=== PATIENT | male | born 1990 | race Caucasian/White ===

== ENCOUNTER 2019-05-21 01:33 | Emergency (ER) | payer SELFPAY ==
[2019-05-21 02:16] LABS: Absolute Lymphocytes (CBC) 3.3 K/uL (0.7-4.9); Basophils % 0.7 % (0-1.3); Eosinophils % 1.3 % (0-4.4); Hematocrit 43.3 % (39.6-49.0); Lymphocytes % 26.3 % (15.3-44.8); MPV 7.8 fL (7.6-11.3); Monocytes % 10.4 % (3.3-12.3); RBC Red Blood Cell Count 4.88 M/uL (4.33-5.43)
[2019-05-21 02:20] LABS: Protime INR 0.94
[2019-05-21 02:52] LABS: ALT/SGPT 131 U/L (12-78); AST/SGOT 30 U/L (15-37); Albumin 4.2 g/dL (3.4-5.0); Alkaline Phosphatase 71 U/L (45-117); BUN Blood Urea Nitrogen 18 mg/dL (7-18); Bicarbonate 29 mmol/L (21-32); Bilirubin Direct 0.1 mg/dL (0-0.2); Bilirubin Total 0.4 mg/dL (0.2-1.0); Glucose Level 135 mg/dL (74-106); Protein, Total 7.8 g/dL (6.4-8.2)
[2019-05-21 03:02] LABS: Potassium 3.5 mmol/L (3.5-5.1); Sodium Level 144 mmol/L (136-145)
--- NOTE | 2019-05-21 04:52 | ER ---
Nurse's Notes [facility] Name: Mana Garces Age: 28 yrs Sex: Male : 1990 Arrival Date: 05/21/2019 Time: 01:43 Bed 15 Private MD: Diagnosis: Altered mental status, unspecified-overdose, not suicidal;Abuse of non-psychoactive substances Presentation: 05/21 02:00 Presenting complaint: EMS states: "We were called for a patient that had reported to jd3 family that he was going to commit suicide with overdose. it was reported to us that he recently was released out skilled nursing after 90 days. upon arrival the patient was found lying on the floor with snoring respirations. we started bagging and gave 2 of Narcan nasally. this had little affect so we started an 18 G IV and gave 2 more of Narcan IV and he woke up. family reported the patient took Zyprexa. When he woke up, the patient reported doing a line of heroin, Xanax, and a bottle of NyQuil just to help him sleep. he currently denies wanting to hurt himself. he also wants to make sure his family doesn't know that he relapsed with drugs.". Transition of care: patient was not received from another setting of care. Onset of symptoms was May 21, 2019. Risk Assessment: Do you want to hurt yourself or someone else? Patient reports no desire to harm self or others. Initial Sepsis Screen: Does the patient meet any 2 criteria? No. Patient's initial sepsis screen is negative. Does the patient have a suspected source of infection? No. Patient's initial sepsis screen is negative. Care prior to arrival: Assisted ventilation, nasal canula. Medication(s) given: Narcan 2 X 2 IV initiated. 18 GA, in the right antecubital area, Glucose check: 205 Oxygen administered. via nasal cannula, via AMBU bag. 02:00 Method Of Arrival: EMS: [facility] jd3 02:00 Acuity: WILD 2 jd3 Historical: - Allergies: 02:12 Ceclor; jd3 - Home Meds: 02:12 Prozac Oral [Active]; Remeron Oral [Active]; Prozac Oral [Active]; jd3 - PMHx: 02:12 ptsd; Anxiety; Depression; jd3 - PSHx: 02:12 Tonsillectomy; jd3 - Immunization history:: Adult Immunizations unknown. - Social history:: Smoking status: Patient uses tobacco products, smokes one pack cigarettes per day. - Family history:: not pertinent. - Ebola Screening: : Patient negative for fever greater than or equal to 101.5 degrees Fahrenheit, and additional compatible Ebola Virus Disease symptoms. Screenin:19 Abuse screen: Denies threats or abuse. Nutritional screening: No deficits noted. jd3 Tuberculosis screening: No symptoms or risk factors identified. Fall Risk IV access (20 points). Ambulatory Aid- None/Bed Rest/Nurse Assist (0 pts). Gait- Normal/Bed Rest/Wheelchair (0 pts) Mental Status- Overestimates/Forgets Limitations (15 pts.). Total [place] Fall Scale indicates Low Risk Score (25-44 pts). Fall prevention measures have been instituted. Side Rails Up X 2 Placed close to Nursing Station Frequent Obs/Assesments occuring. Assessment: 02:15 General: Appears in no apparent distress. comfortable, Behavior is calm, cooperative, jd3 appropriate for age, drowsy. Pain: Complains of pain in head Pain currently is 1 out of 10 on a pain scale. Quality of pain is described as aching. Neuro: Level of Consciousness is awake, obeys commands, drowsy. Oriented to person, place, time, situation. Cardiovascular: Heart tones S1 S2 present Capillary refill < 3 seconds Patient's skin is warm and dry. Rhythm is sinus tachycardia. Respiratory: Airway is patent Respiratory effort is even, unlabored, Respiratory pattern is regular, symmetrical, Breath sounds are clear bilaterally. Denies cough, shortness of breath. GI: Abdomen is round non-distended, Bowel sounds present X 4 quads. Abd is soft and non tender X 4 quads. Reports nausea, vomiting, Patient currently denies constipation, diarrhea. : No signs and/or symptoms were reported regarding the genitourinary system. EENT: No signs and/or symptoms were reported regarding the EENT system. Derm: Skin is intact, Skin is dry, Skin is normal, Skin temperature is warm. Musculoskeletal: Circulation, motion, and sensation intact. Range of motion: intact in all extremities. 02:48 Reassessment: spoke to Poison Control case # [id number] recommendations are monitor 4-6 bb hours, chest Xray at 4 hours to assess for pulmonary edema, toxic work-up with tylenol, aspirin levels repeat in 4 hours, monitor for anticholinergic effects of Nyquil, check CK levels to r/o rhabdomyolysis if downtime is unknown, if Narcan is administered again s/p EMS administration consider admission. 02:50 Reassessment: No changes from previously documented assessment. Patient and/or family jd3 updated on plan of care and expected duration. Pain level reassessed. oriented X 4, pt is drowsy. talking with family at bedside. even and unlabored respirations. 03:58 Reassessment: Patient appears in no apparent distress at this time. No changes from jd3 previously documented assessment. Patient and/or family updated on plan of care and expected duration. Pain level reassessed. Patient denies pain at this time. 05:04 Reassessment: Patient appears in no apparent distress at this time. Patient and/or jd3 family updated on plan of care and expected duration. Pain level reassessed. pt resting in bed with even and unlabored respirations, call ennis in reach. bed locked and in a low position. pt drowsy upon waking up. no distress noted at this time. 06:22 Reassessment: Patient appears in no apparent distress at this time. No changes from jd3 previously documented assessment. Patient and/or family updated on plan of care and expected duration. Pain level reassessed. awaiting repeat lab results. pt drowsy upon waking up. pt not marinating oxygen without nasal canula, provider notified. even and unlabored respirations. 08:05 Reassessment: Patient appears in no apparent distress at this time. pt unable to sit or sg stand on his own at this time, pt family to pick pt up, will continue to monitor. 08:32 Reassessment: pt awakens to tactile stimuli at this time, pt very drowsy, unable to sg situp without falling asleep. sr x2 remain up, bed is in low and locked position, pt remains on monitors at this time. pt to DC to home as ordered when pt is in stable condition. 08:35 Reassessment: pt NC has been removed by pt, o2 saturation of 77 percent, pt placed back sg to NC at 3 lpm, o2 saturation increased to 99 % NC at 3 lpm. 08:44 Reassessment: pt family member Quentin at bedside at this time, reports the pt lives with sg his sister. at this time pt is not in a condition to be discharged due to the need for NC o2 to help maintain saturation greater than 90 %, pt family to come back later for re evaluation prior to pt leaving. Vital Signs: 02:05 BP 110 / 89; Pulse 123; Resp 19 S; Temp 98.7(O); Pulse Ox 89% on R/A; Weight 74.84 kg jd3 (R); Height 5 ft. 10 in. (177.80 cm) (R); Pain 1/10; 02:12 Pulse Ox 96% on 2 lpm NC; jd3 02:51 BP 116 / 90; Pulse 118; Resp 20 S; Pulse Ox 93% on R/A; jd3 03:59 BP 106 / 75; Pulse 116; Resp 15 S; Pulse Ox 96% on 2 lpm NC; Pain 0/10; jd3 05:03 BP 111 / 95; Pulse 110; Resp 14 S; Pulse Ox 99% on 2 lpm NC; jd3 06:22 BP 143 / 95; Pulse 115; Resp 12 S; Pulse Ox 89% on R/A; jd3 06:22 Pulse Ox 99% on 2 lpm NC; jd3 07:00 BP 112 / 87; Pulse 109; Resp 18; Pulse Ox 89% on R/A; sg 07:01 Pulse Ox 99% on 2 lpm NC; sg 02:05 Body Mass Index 23.67 (74.84 kg, 177.80 cm) jd3 07:00 pt placed back to 2 lpm NC, o2 saturation increased to 99 % ED Course: 01:43 Patient arrived in ED. ds1 01:44 Fabian Brownlee MD is Attending Physician. edson 02:00 Harrison Knox RN is Primary Nurse. jd3 02:10 Triage completed. jd3 02:14 Arm band placed on. EKG completed in triage. Results shown to . jd3 02:20 Patient has correct armband on for positive identification. Placed in gown. Bed in low jd3 position. Call light in reach. Side rails up X2. 02:20 Maintain EMS IV. Dressing intact. Good blood return noted. Site clean \\T\\ dry. Gauge \\T\\ shellie 3 site: 18 G right AC. flushes well. 03:41 X-ray completed. Portable x-ray completed in exam room. Patient tolerated procedure kw well. 03:42 Chest Single View XRAY In Process Unspecified. EDMS 04:23 Quentin Alexander [phone] call when being discharged. ar5 Administered Medications: 02:32 Drug: NS 0.9% 1000 ml Route: IV; Rate: 1 bolus; Site: right antecubital; jd3 02:32 Drug: Zofran 4 mg Route: IVP; Site: right antecubital; jd3 03:30 Follow up: Response: No adverse reaction jd3 Outcome: 04:51 Discharge ordered by MD. sandhu 11:19 Patient left the ED. aa5 Signatures: Dispatcher [employer] EDMS Clyde Saldana RN RN sg Anderson, Corey, MD MD cha Sanford, Demi ds1 Kiera Cano RN RN bb Calderon, Audri, RN RN aa5 Sonia Goodman Jonathon, RN RN Kenia Laureano ar5
--- NOTE | 2019-05-21 04:52 | EDPHYS ---
Physician Documentation [facility] Name: Mana Garces Age: 28 yrs Sex: Male : 1990 Arrival Date: 05/21/2019 Time: 01:43 Bed 15 Private MD: ED Physician Fabian Brownlee HPI: 05/21 01:53 This 28 yrs old Male presents to ER via Unassigned with complaints of drug edson od,ems. 01:53 od, cant sleep. The patient presents with confusion, trouble concentrating. Onset: The edson symptoms/episode began/occurred just prior to arrival. Possible causes: drug use. Associated signs and symptoms: The patient has no apparent associated signs or symptoms. Current symptoms: In the emergency department the patient's symptoms have improved, moderately. Patient's baseline: Neuro: alert but confused. Severity of symptoms: At their worst the symptoms were moderate in the emergency department the symptoms have improved moderately. It is unknown whether or not the patient has had similar symptoms in the past. Historical: - Allergies: 02:12 Ceclor; jd3 - Home Meds: 02:12 Prozac Oral [Active]; Remeron Oral [Active]; Prozac Oral [Active]; jd3 - PMHx: 02:12 ptsd; Anxiety; Depression; jd3 - PSHx: 02:12 Tonsillectomy; jd3 - Immunization history:: Adult Immunizations unknown. - Social history:: Smoking status: Patient uses tobacco products, smokes one pack cigarettes per day. - Family history:: not pertinent. - Ebola Screening: : Patient negative for fever greater than or equal to 101.5 degrees Fahrenheit, and additional compatible Ebola Virus Disease symptoms. ROS: 01:53 Constitutional: Negative for fever, chills, and weight loss, Eyes: Negative for injury, edson pain, redness, and discharge, ENT: Negative for injury, pain, and discharge, Neck: Negative for injury, pain, and swelling, Cardiovascular: Negative for chest pain, palpitations, and edema, Respiratory: Negative for shortness of breath, cough, wheezing, and pleuritic chest pain, Back: Negative for injury and pain, : Negative for injury, bleeding, discharge, and swelling, MS/Extremity: Negative for injury and deformity, Skin: Negative for injury, rash, and discoloration, Psych: Negative for depression, anxiety, suicide ideation, homicidal ideation, and hallucinations, Allergy/Immunology: Negative for hives, rash, and allergies, Endocrine: Negative for neck swelling, polydipsia, polyuria, polyphagia, and marked weight changes, Hematologic/Lymphatic: Negative for swollen nodes, abnormal bleeding, and unusual bruising. 01:53 Abdomen/GI: Positive for nausea, vomiting. 01:53 Neuro: Positive for altered mental status, weakness. :53 Psych: Positive for insomnia. Exam: 01:53 Constitutional: This is a well developed, well nourished patient who is awake, alert, edson and in no acute distress. Head/Face: Normocephalic, atraumatic. Eyes: Pupils equal round and reactive to light, extra-ocular motions intact. Lids and lashes normal. Conjunctiva and sclera are non-icteric and not injected. Cornea within normal limits. Periorbital areas with no swelling, redness, or edema. ENT: Nares patent. No nasal discharge, no septal abnormalities noted. Tympanic membranes are normal and external auditory canals are clear. Oropharynx with no redness, swelling, or masses, exudates, or evidence of obstruction, uvula midline. Mucous membranes moist. Neck: Trachea midline, no thyromegaly or masses palpated, and no cervical lymphadenopathy. Supple, full range of motion without nuchal rigidity, or vertebral point tenderness. No Meningismus. Chest/axilla: Normal chest wall appearance and motion. Nontender with no deformity. No lesions are appreciated. Cardiovascular: Regular rate and rhythm with a normal S1 and S2. No gallops, murmurs, or rubs. Normal PMI, no JVD. No pulse deficits. Respiratory: Lungs have equal breath sounds bilaterally, clear to auscultation and percussion. No rales, rhonchi or wheezes noted. No increased work of breathing, no retractions or nasal flaring. Abdomen/GI: Soft, non-tender, with normal bowel sounds. No distension or tympany. No guarding or rebound. No evidence of tenderness throughout. Back: No spinal tenderness. No costovertebral tenderness. Full range of motion. Male : Normal genitalia with no discharge or lesions. Skin: Warm, dry with normal turgor. Normal color with no rashes, no lesions, and no evidence of cellulitis. MS/ Extremity: Pulses equal, no cyanosis. Neurovascular intact. Full, normal range of motion. Neuro: Awake and alert, GCS 15, oriented to person, place, time, and situation. Cranial nerves II-XII grossly intact. Motor strength 5/5 in all extremities. Sensory grossly intact. Cerebellar exam normal. Normal gait. Psych: Awake, alert, with orientation to person, place and time. Behavior, mood, and affect are within normal limits. Vital Signs: 02:05 BP 110 / 89; Pulse 123; Resp 19 S; Temp 98.7(O); Pulse Ox 89% on R/A; Weight 74.84 kg jd3 (R); Height 5 ft. 10 in. (177.80 cm) (R); Pain 1/10; 02:12 Pulse Ox 96% on 2 lpm NC; jd3 02:51 BP 116 / 90; Pulse 118; Resp 20 S; Pulse Ox 93% on R/A; jd3 03:59 BP 106 / 75; Pulse 116; Resp 15 S; Pulse Ox 96% on 2 lpm NC; Pain 0/10; jd3 05:03 BP 111 / 95; Pulse 110; Resp 14 S; Pulse Ox 99% on 2 lpm NC; jd3 06:22 BP 143 / 95; Pulse 115; Resp 12 S; Pulse Ox 89% on R/A; jd3 06:22 Pulse Ox 99% on 2 lpm NC; jd3 07:00 BP 112 / 87; Pulse 109; Resp 18; Pulse Ox 89% on R/A; sg 07:01 Pulse Ox 99% on 2 lpm NC; sg 02:05 Body Mass Index 23.67 (74.84 kg, 177.80 cm) jd3 07:00 pt placed back to 2 lpm NC, o2 saturation increased to 99 % MDM: 01:44 Patient medically screened. [facility] 01:55 Data reviewed: vital signs, nurses notes, lab test result(s), EKG. 05/21 01:52 Order name: Acetaminophen; Complete Time: 03:22 edson 05/21 01:52 Order name: Basic Metabolic Panel; Complete Time: 03:22 edson 05/21 01:52 Order name: CBC with Diff; Complete Time: 03:22 [facility] 05/21 01:52 Order name: ETOH Level; Complete Time: 03:22 [facility] 05/21 01:52 Order name: Hepatic Function; Complete Time: 03:22 [facility] 05/21 01:52 Order name: PT-INR; Complete Time: 03:22 [facility] 05/21 01:52 Order name: Ptt, Activated; Complete Time: 03:22 [facility] 05/21 01:52 Order name: Salicylate; Complete Time: 03:22 [facility] 05/21 01:52 Order name: EKG; Complete Time: 01:55 [facility] 05/21 03:25 Order name: Chest Single View XRAY; Complete Time: 08:31 [facility] 05/21 05:34 Order name: Acetaminophen; Complete Time: 06:51 mw2 05/21 01:52 Order name: EKG - Nurse/Tech; Complete Time: 02:07 [facility] 05/21 01:52 Order name: IV Saline Lock; Complete Time: 02:07 [facility] 05/21 01:52 Order name: Labs collected and sent; Complete Time: 02:06 [facility] 05/21 10:33 Order name: Diet Regular; Complete Time: 10:34 aa5 Administered Medications: 02:32 Drug: NS 0.9% 1000 ml Route: IV; Rate: 1 bolus; Site: right antecubital; jd3 02:32 Drug: Zofran 4 mg Route: IVP; Site: right antecubital; jd3 03:30 Follow up: Response: No adverse reaction jd3 Disposition: 05/21/19 04:51 Discharged to Home. Impression: Altered mental status, unspecified - overdose, not suicidal, Abuse of non-psychoactive substances. - Condition is Stable. - Discharge Instructions: Confusion, Substance Use Disorder. - Medication Reconciliation Form, Thank You Letter, Antibiotic Education, Prescription Opioid Use form. - Follow up: Private Physician; When: 2 - 3 days; Reason: Recheck today's complaints, Continuance of care, Re-evaluation by your physician. - Problem is new. - Symptoms have improved. Signatures: Dispatcher [employer] EDMS Fabian Brownlee MD MD cha Calderon, Audri, RN RN aa5 Puma Morales, ENGINE ASSEMBLY SUPERVISOR ENGINE ASSEMBLY SUPERVISOR pm1 Harrison Knox RN RN jd3 Corrections: (The following items were deleted from the chart) 11:19 04:51 05/21/2019 04:51 Discharged to Home. Impression: Altered mental status, aa5 unspecified - overdose, not suicidal; Abuse of non-psychoactive substances. Condition is Stable. Discharge Instructions: Confusion, Substance Use Disorder. Forms are Medication Reconciliation Form, Thank You Letter, Antibiotic Education, Prescription Opioid Use. Follow up: Private Physician; When: 2 - 3 days; Reason: Recheck today's complaints, Continuance of care, Re-evaluation by your physician. Problem is new. Symptoms have improved. edson
--- NOTE | 2019-05-21 07:19 | EKG ---
Test Date: 2019-05-21 Test Time: 01:35:59 Logging Rafter Laborer: AER MEASUREMENT RESULTS: Intervals: Rate: 116 IL: 154 QRSD: 114 QT: 340 QTc: 472 [place]: P: 58 IL: 154 QRS: 2 T: 68 INTERPRETIVE STATEMENTS: Sinus tachycardia Incomplete right bundle branch block Borderline ECG No previous ECG available for comparison Electronically Signed On 05-21-19 07:19:04 CDT by Wilton Eason
--- NOTE | 2019-05-21 07:58 | RAD REPORT ---
EXAM DESCRIPTION: Nas Single View05/21/2019 3:42 am CLINICAL HISTORY: Cough COMPARISON: none FINDINGS: The lungs appear clear of acute infiltrate. The heart is normal size Poor degree of inspiration
[2019-05-21 11:41] VITALS: TEMP 98.7
[2019-05-21 11:50] VITALS: BP 112/87
[2019-05-21 11:51] VITALS: O2SAT 99
== END 2019-05-21 11:19 | disposition home or self-care (01) ==
LOC: ER 01:33
DX: T65.91XA Toxic effect of unspecified substance, accidental (unintentional), initial encounter (principal); F55.8 Abuse of other non-psychoactive substances; F17.210 Nicotine dependence, cigarettes, uncomplicated; F41.9 Anxiety disorder, unspecified; F32.9 Major depressive disorder, single episode, unspecified; F43.10 Post-traumatic stress disorder, unspecified; Z88.1 Allergy status to other antibiotic agents
CPT/HCPCS: 36415; 71045; 80048; 80076; 80320; 80329; 85025; 85610; 85730; 93005; 96374; 99284

== ENCOUNTER 2020-04-10 12:50 | Emergency (ER) | payer SELFPAY ==
--- NOTE | 2020-04-10 15:16 | ER ---
Nurse's Notes [facility] Name: Mana Garces Age: 29 yrs Sex: Male : 1990 Arrival Date: 04/10/2020 Time: 12:53 Bed 27 Private MD: Diagnosis: Presentation: 04/10 13:10 Chief complaint: Patient states: skin sores that began 3 weeks ago. Coronavirus screen: Proceed with normal triage. Patient denies a cough. Patient denies shortness of breath or difficulty breathing. Patient denies measured and/or subjective temperature greater than 100.4F prior to today's visit. Patient denies travel on a cruise ship or to a country the [facility] currently lists as an affected area. Patient denies contact with known and/or suspected case of COVID-19. Ebola Screen: Patient denies exposure to infectious person. Patient denies travel to an Ebola-affected area in the 21 days before illness onset. Initial Sepsis Screen: Does the patient meet any 2 criteria? No. Patient's initial sepsis screen is negative. Does the patient have a suspected source of infection? No. Patient's initial sepsis screen is negative. Risk Assessment: Do you want to hurt yourself or someone else? Patient reports no desire to harm self or others. Onset of symptoms is unknown. 13:10 Method Of Arrival: Ambulatory 13:10 Acuity: WILD 4 Historical: - Allergies: 13:11 Ceclor; - PMHx: 13:11 Anxiety; Depression; PTSD; ss - PSHx: 13:11 Tonsillectomy; - Immunization history:: Adult Immunizations unknown. - Social history:: Smoking status: Patient denies any tobacco usage or history of. Assessment: 14:23 Reassessment: called to exam room. No answer. Pt was seen by bystander walking around ER parking lot. 15:08 Reassessment: Called pt's name out in ER lobby without response. aa5 15:15 Reassessment: telephone sales representative reports pt eloped due to waiting time. . aa5 Vital Signs: 13:10 BP 123 / 82; Pulse 112; Resp 16; Temp 99.0(TE); Pulse Ox 100% on R/A; Weight 61.23 kg; Height 5 ft. 10 in. (177.80 cm); Pain 0/10; 13:10 Body Mass Index 19.37 (61.23 kg, 177.80 cm) ED Course: 12:53 Patient arrived in ED. mr 13:11 Triage completed. ss 13:11 Arm band placed on right wrist. ss 15:08 Lawanda Aldana, RN is Primary Nurse. aa5 15:09 [facility]C [facility]. snw 15:09 Tello Mack MD is Attending Physician. snw 15:15 Tello Mack MD is Attending Physician. aa5 Administered Medications: No medications were administered Outcome: 15:15 Patient left the ED. aa5 Signatures: Eliane Vega FNP-C FNP-Forrest Maryan Gonzalez mr Lawanda Aldana, RN RN aa5 Paige Magallon RN RN
[2020-04-10 15:19] VITALS: BP 123/82; TEMP 99; O2SAT 100
== END 2020-04-10 15:15 | disposition left against medical advice (07) ==
LOC: ER 12:50
DX: Z53.21 Procedure and treatment not carried out due to patient leaving prior to being seen by health care provider (principal)
CPT/HCPCS: 99281

== ENCOUNTER 2020-04-10 15:36 | Emergency (ER) | payer SELFPAY ==
--- NOTE | 2020-04-10 18:25 | ER ---
Nurse's Notes [facility] Name: Mana Garces Age: 29 yrs Sex: Male : 1990 Arrival Date: 04/10/2020 Time: 15:41 Bed Waiting Private MD: Diagnosis: Presentation: 04/10 16:00 Chief complaint: Patient states: rash that began 2-3 weeks ago. Coronavirus screen: ss Proceed with normal triage. Patient denies a cough. Patient denies shortness of breath or difficulty breathing. Patient denies measured and/or subjective temperature greater than 100.4F prior to today's visit. Patient denies travel on a cruise ship or to a country the [facility] currently lists as an affected area. Patient denies contact with known and/or suspected case of COVID-19. Ebola Screen: Patient denies exposure to infectious person. Patient denies travel to an Ebola-affected area in the 21 days before illness onset. Initial Sepsis Screen: Does the patient meet any 2 criteria? No. Patient's initial sepsis screen is negative. Does the patient have a suspected source of infection? No. Patient's initial sepsis screen is negative. Risk Assessment: Do you want to hurt yourself or someone else? Patient reports no desire to harm self or others. Onset of symptoms was March 2020. 16:00 Method Of Arrival: Ambulatory 16:00 Acuity: WILD 4 Historical: - Allergies: 16:04 Ceclor; ss - PMHx: 16:04 Anxiety; Depression; PTSD; ss - PSHx: 16:04 Tonsillectomy; ss - Immunization history:: Adult Immunizations unknown. - Social history:: Smoking status: Patient reports the use of cigarette tobacco products, smokes one-half pack cigarettes per day. Assessment: 18:24 Reassessment: eloped due to wait time. Pt told screeners that he will return again in the morning. Vital Signs: 16:00 BP 138 / 89; Pulse 112; Resp 18; Temp 99.9; Pulse Ox 98% on R/A; ss ED Course: 15:41 Patient arrived in ED. mr 16:04 Triage completed. 16:04 Arm band placed on right wrist. 18:18 Fabian Orr PA is PHCP. 18:18 Tello Mack MD is Attending Physician. cp 18:24 No provider procedures requiring assistance completed. Patient did not have IV access ss during this emergency room visit. Administered Medications: No medications were administered Outcome: 18:24 Eloped from waiting room, before seeing physician ss 18:25 Patient left the ED. ss Signatures: Maryan Gonzalez Paige Magallon, NISHI RN ss Fabian Orr, CECILIO PA cp
[2020-04-10 18:37] VITALS: BP 138/89; TEMP 99.9; O2SAT 98
== END 2020-04-10 18:25 | disposition left against medical advice (07) ==
LOC: ER 15:36
DX: Z53.21 Procedure and treatment not carried out due to patient leaving prior to being seen by health care provider (principal)
CPT/HCPCS: 99281

== ENCOUNTER 2020-04-11 14:06 | Emergency (ER) | payer SELFPAY ==
--- NOTE | 2020-04-11 15:13 | EDPHYS ---
Physician Documentation [facility] Name: Mana Garces Age: 29 yrs Sex: Male : 1990 Arrival Date: 04/11/2020 Time: 14:10 Bed 23 Private MD: ED Physician Tello Mack HPI: 04/11 16:43 This 29 yrs old Male presents to ER via Ambulatory with complaints of Skin snw Sore(s). 16:43 The patient's rash thought to be caused by Dermatitis. The rash is located on the right snw arm, right leg and left leg. The rash can be described as erythematous, papular, patchy, plaque-like. Onset: The symptoms/episode began/occurred gradually. Associated signs and symptoms: Pertinent positives: itching. Severity of symptoms: At their worst the symptoms were moderate severe in the emergency department the symptoms are unchanged. Treatment given at home: wrapping and tying off with duct or electrical tape. It is unknown whether or not the patient has had similar symptoms in the past. It is unknown whether or not the patient has recently seen a physician. Historical: - Allergies: 14:36 Ceclor; tw2 - Home Meds: 14:36 None [Active]; tw2 - PMHx: 14:36 Anxiety; Depression; PTSD; tw2 - PSHx: 14:36 Tonsillectomy; tw2 - Immunization history:: Adult Immunizations not up to date. - Social history:: Smoking status: Patient reports the use of cigarette tobacco products, smokes one-half pack cigarettes per day, Patient/guardian denies using alcohol, street drugs. ROS: 16:42 Constitutional: Negative for fever, chills, and weight loss, Eyes: Negative for injury, snw pain, redness, and discharge, ENT: Negative for injury, pain, and discharge, Neck: Negative for injury, pain, and swelling, Cardiovascular: Negative for chest pain, palpitations, and edema, Respiratory: Negative for shortness of breath, cough, wheezing, and pleuritic chest pain, Abdomen/GI: Negative for abdominal pain, nausea, vomiting, diarrhea, and constipation, Back: Negative for injury and pain, : Negative for injury, bleeding, discharge, and swelling, MS/Extremity: Negative for injury and deformity, Neuro: Negative for headache, weakness, numbness, tingling, and seizure, Psych: Negative for depression, anxiety, suicide ideation, homicidal ideation, and hallucinations. 16:42 Skin: Positive for rash. Exam: 16:39 Head/Face: Normocephalic, atraumatic. Eyes: Pupils equal round and reactive to light, snw extra-ocular motions intact. Lids and lashes normal. Conjunctiva and sclera are non-icteric and not injected. Cornea within normal limits. Periorbital areas with no swelling, redness, or edema. 16:39 Neck: Trachea midline, no thyromegaly or masses palpated, and no cervical lymphadenopathy. Supple, full range of motion without nuchal rigidity, or vertebral point tenderness. No Meningismus. Chest/axilla: Normal chest wall appearance and motion. Nontender with no deformity. No lesions are appreciated. Cardiovascular: Tachycardic rate and rhythm with a normal S1 and S2. No gallops, murmurs, or rubs. Normal PMI, no JVD. No pulse deficits. Respiratory: Lungs have equal breath sounds bilaterally, clear to auscultation and percussion. No rales, rhonchi or wheezes noted. No increased work of breathing, no retractions or nasal flaring. Abdomen/GI: Soft, non-tender, with normal bowel sounds. No distension or tympany. No guarding or rebound. No evidence of tenderness throughout. Back: No spinal tenderness. No costovertebral tenderness. Full range of motion. Neuro: Awake and alert, GCS 15, oriented to person, place, time, and situation. Cranial nerves II-XII grossly intact. Motor strength 5/5 in all extremities. Sensory grossly intact. Cerebellar exam normal. Normal gait. Psych: Awake, alert, with orientation to person, place and time. Behavior, mood, and affect are within normal limits. 16:39 Constitutional: The patient appears alert, awake, anxious, restless, uncomfortable. 16:39 ENT: Dental exam: gum swelling, that is moderate, diffusely, significant dental caries. 16:39 Skin: Appearance: rash a moderate rash is noted, large staph wounds that are dried over lower extremities, left knee and right lower leg with wet lesions as pt had wrapped tightly and secured with duct tape. Lower extremities edematous . Vital Signs: 14:32 BP 125 / 83; Pulse 113; Resp 17; Temp 98.8(TE); Pulse Ox 99% on R/A; Weight 65.77 kg tw2 (R); Height 5 ft. 10 in. (177.80 cm); Pain 5/10; 14:32 Body Mass Index 20.81 (65.77 kg, 177.80 cm) tw2 MDM: 15:05 Patient medically screened. snw 16:42 Data reviewed: vital signs, nurses notes. Data interpreted: Pulse oximetry: on room air snw is 99 %. Interpretation: normal. Counseling: I had a detailed discussion with the patient and/or guardian regarding: the historical points, exam findings, and any diagnostic results supporting the discharge/admit diagnosis, the presence of at least one elevated blood pressure reading (>120/80) during this emergency department visit, the need for outpatient follow up, to return to the emergency department if symptoms worsen or persist or if there are any questions or concerns that arise at home. Special discussion: I have referred the patient to see his PCP for further evaluation of high blood pressure. I discussed in detail with the patient the higher chance of wound infection based on his presenting history. Based on the history and exam findings, there is no indication for further emergent testing or inpatient evaluation. I discussed with the patient/guardian the need to see the primary care provider for further evaluation of the symptoms. Administered Medications: 15:35 Drug: Bactrim (160 mg-800 mg (DS) 1 tablet Route: PO; iw 15:40 Drug: Tetanus-Diphtheria Toxoid Adult 0.5 ml {Supervisor [employer]: [employer]. Exp: 03/16/2021. Lot #: [id number]. } Route: IM; Site: left deltoid; 15:45 Drug: Hibiclens 4 % 1 application Route: Topical; Site: affected area; iw Disposition: 04/12 13:38 Co-signature as Attending Physician, Tello Mack MD I agree with the assessment and kdr plan of care. Disposition: 04/11/20 15:12 Discharged to Home. Impression: Impetigo, unspecified. - Condition is Stable. - Discharge Instructions: VIS, Tetanus, Diphtheria (Td) - CDC, Hand Washing, Staphylococcal Infection. - Prescriptions for Bactrim DS 800- 160 mg Oral Tablet - take 1 tablet by ORAL route every 12 hours for 10 days; 20 tablet. - Medication Reconciliation Form, Thank You Letter, Antibiotic Education, Prescription Opioid Use form. - Follow up: Emergency Department; When: As needed; Reason: Worsening of condition. Follow up: Private Physician; When: 2 - 3 days; Reason: Recheck today's complaints, Continuance of care, Re-evaluation by your physician. Signatures: Tello Mack MD MD [facility] Eliane Vega, DIVISIONAL HUMAN RESOURCES DIRECTOR-C DIVISIONAL HUMAN RESOURCES DIRECTOR-Csnw Nichole Blanco RN RN iw Marilyn Baca RN RN tw2 Corrections: (The following items were deleted from the chart) 04/11 16:03 15:12 04/11/2020 15:12 Discharged to Home. Impression: Impetigo, unspecified. Condition iw is Stable. Forms are Medication Reconciliation Form, Thank You Letter, Antibiotic Education, Prescription Opioid Use. Follow up: Emergency Department; When: As needed; Reason: Worsening of condition. Follow up: Private Physician; When: 2 - 3 days; Reason: Recheck today's complaints, Continuance of care, Re-evaluation by your physician. snw
--- NOTE | 2020-04-11 15:13 | ER ---
Nurse's Notes [facility] Name: Mana Garces Age: 29 yrs Sex: Male : 1990 Arrival Date: 04/11/2020 Time: 14:10 Bed 23 Private MD: Diagnosis: Impetigo, unspecified Presentation: 04/11 14:32 Chief complaint: Patient states: well it hurts when i sit down, it has been infected tw2 and are sore and they are on my legs and arms, a few months ago [place] the [place] i didn't get the antibiotics because i didn't have the money i keep thinkin they are going to heal but it has only gotten worse, i am homeless so i dont know if i am been able to doctor it like i should, from my knee down and on my arms the sores are there. Coronavirus screen: Patient denies a cough. Patient denies shortness of breath or difficulty breathing. Patient denies measured and/or subjective temperature greater than 100.4F prior to today's visit. Patient denies travel on a cruise ship or to a country the [facility] currently lists as an affected area. Patient denies contact with known and/or suspected case of COVID-19. Ebola Screen: Patient denies travel to an Ebola-affected area in the 21 days before illness onset. Initial Sepsis Screen: Does the patient meet any 2 criteria? HR > 90 bpm. No. Patient's initial sepsis screen is negative. Does the patient have a suspected source of infection? No. Patient's initial sepsis screen is negative. Risk Assessment: Do you want to hurt yourself or someone else? Patient reports no desire to harm self or others. Onset of symptoms was April 11, 2020. 14:32 Method Of Arrival: Ambulatory tw2 14:32 Acuity: WILD 3 tw2 Triage Assessment: 14:36 General: Appears in no apparent distress. unkempt, Behavior is calm, cooperative, tw2 appropriate for age. Pain: Complains of pain in right arm, left arm, right leg and left leg. Derm: Reports increased "sores and i think they are getting infected, the right leg one is the worse". Historical: - Allergies: 14:36 Ceclor; tw2 - Home Meds: 14:36 None [Active]; tw2 - PMHx: 14:36 Anxiety; Depression; PTSD; tw2 - PSHx: 14:36 Tonsillectomy; tw2 - Immunization history:: Adult Immunizations not up to date. - Social history:: Smoking status: Patient reports the use of cigarette tobacco products, smokes one-half pack cigarettes per day, Patient/guardian denies using alcohol, street drugs. Screenin:41 Abuse screen: Denies threats or abuse. Nutritional screening: No deficits noted. tw2 Tuberculosis screening: No symptoms or risk factors identified. Fall Risk None identified. Assessment: 15:30 General: Appears in no apparent distress. Behavior is anxious, restless. Neuro: Level iw of Consciousness is awake, alert, obeys commands, Oriented to person, place, time, situation, Moves all extremities. Full function. Cardiovascular: Patient's skin is warm and dry. Respiratory: Respiratory effort is even, unlabored, Respiratory pattern is regular, symmetrical. Derm: Skin has lesions on BLE , BUE Rash noted that is itchy, papular, red, urticaria, on right arm, left arm, right leg and left leg. Musculoskeletal: Range of motion: intact in all extremities. Vital Signs: 14:32 BP 125 / 83; Pulse 113; Resp 17; Temp 98.8(TE); Pulse Ox 99% on R/A; Weight 65.77 kg tw2 (R); Height 5 ft. 10 in. (177.80 cm); Pain 5/10; 14:32 Body Mass Index 20.81 (65.77 kg, 177.80 cm) tw2 ED Course: 14:10 Patient arrived in ED. mr 14:35 Triage completed. tw2 14:35 Arm band placed on. tw2 14:41 Placed in gown. Bed in low position. Call light in reach. tw2 14:47 Eliane Vega FNP-C is [facility]. snw 14:47 Tello Mack MD is Attending Physician. snw 15:26 Nichole Blanco, NISHI is Primary Nurse. iw 16:02 No provider procedures requiring assistance completed. Patient did not have IV access iw during this emergency room visit. Administered Medications: 15:35 Drug: Bactrim (160 mg-800 mg (DS) 1 tablet Route: PO; iw 15:40 Drug: Tetanus-Diphtheria Toxoid Adult 0.5 ml {Registered Nurse Obstetrics: [employer]. Exp: iw 03/16/2021. Lot #: [id number]. } Route: IM; Site: left deltoid; 15:45 Drug: Hibiclens 4 % 1 application Route: Topical; Site: affected area; iw Outcome: 15:12 Discharge ordered by MD. smith 16:02 Discharged to home ambulatory. iw 16:02 Condition: good 16:02 Discharge instructions given to patient, Instructed on discharge instructions, follow up and referral plans. medication usage, Demonstrated understanding of instructions, follow-up care, medications, Prescriptions given X 2. 16:03 Patient left the ED. iw Signatures: Eliane Vega, CONTINUOUS WAVE OPERATOR-C CONTINUOUS WAVE OPERATOR-CsnMaryan Baig Irene, RN NISHI iw Marilyn Baca RN RN tw2 Corrections: (The following items were deleted from the chart) 14:47 14:32 Chief complaint: Patient states: well it hurts when i sit down, it has been tw2 infected and are sore and they are on my legs and arms, a few months ago i [place] the [place], i didn't get the antibiotics because i didn't have the money i keep thinkin they are going to heal but it has only gotten worse, i am homeless so i dont know if i am been able to doctor it like i should, from my knee down. tw2
[2020-04-11] MEDS ORDERED: TETANUS & DIPHTHERIA TOX,ADULT 0.5 ML VIAL ONE (15:36)
[2020-04-11] MEDS ORDERED: SMZ./TMP. 800/160 MG TABLET ONE (15:36)
[2020-04-11 16:10] VITALS: BP 125/83; TEMP 98.8; O2SAT 99
== END 2020-04-11 16:03 | disposition home or self-care (01) ==
LOC: ER 14:06
DX: L01.00 Impetigo, unspecified (principal); F17.210 Nicotine dependence, cigarettes, uncomplicated; Z88.1 Allergy status to other antibiotic agents
CPT/HCPCS: 90471; 90714; 99283

== ENCOUNTER 2020-12-28 12:47 | Emergency (ER) | payer SELFPAY ==
--- OUTSIDE RECORDS SUMMARY | 2020-12-28 12:48 | XMS REPORT | Continuity of Care Document ---
:1990 Author Organization [facility] t Address [address] [place] [address] Care Team Providers Name Role Phone Unavailable Unavailable Unavailable Problems This patient has no known problems. Allergies, Adverse Reactions, Alerts This patient has no known allergies or adverse reactions. Medications This patient has no known medications. Procedures This patient has no known procedures. Results This patient has no known results.
[2020-12-28 13:43] LABS: Absolute Lymphocytes (CBC) 1.5 K/uL (0.7-4.9); Basophils % 0.5 % (0-1.3); Hematocrit 36.1 % (39.6-49.0); Lymphocytes % 18.1 % (15.3-44.8); MPV 8.1 fL (7.6-11.3); RBC Red Blood Cell Count 4.17 M/uL (4.33-5.43)
[2020-12-28 13:47] LABS: Protime INR 1.04
[2020-12-28] MEDS ORDERED: NA CHLORIDE 0.9% 1,000 ML ONE (13:53)
--- NOTE | 2020-12-28 13:57 | RAD REPORT ---
EXAM DESCRIPTION: Nas Single View12/28/2020 1:44 pm CLINICAL HISTORY: Chest pain COMPARISON: 2018 FINDINGS: The lungs appear clear of acute infiltrate. The heart is normal size IMPRESSION: No acute abnormalities displayed
[2020-12-28 14:39] LABS: ALT/SGPT 67 U/L (12-78); AST/SGOT 42 U/L (15-37); Alkaline Phosphatase 58 U/L (45-117); BUN Blood Urea Nitrogen 15 mg/dL (7-18); Bicarbonate 24 mmol/L (21-32); Bilirubin Direct 0.2 mg/dL (0-0.2); Bilirubin Total 0.6 mg/dL (0.2-1.0); Glucose Level 71 mg/dL (74-106); Magnesium 2.3 mg/dL (1.8-2.4); NT PRO-BNP 105 pg/mL (<125); Potassium 3.7 mmol/L (3.5-5.1); Protein, Total 7.5 g/dL (6.4-8.2); Sodium Level 141 mmol/L (136-145); Troponin (Emerg Dept Use Only) < 0.02 ng/mL (0.0-0.045)
[2020-12-28 16:10] LABS: Barbiturates NEGATIVE (NEGATIVE); Benzodiazepines NEGATIVE (NEGATIVE); Cocaine NEGATIVE (NEGATIVE); METHAMPHETAM POSITIVE (NEGATIVE); Methadone NEGATIVE (NEGATIVE); Opiates NEGATIVE (NEGATIVE); Phencyclidine NEGATIVE (NEGATIVE); THC Cannibis NEGATIVE (NEGATIVE)
[2020-12-28 16:21] LABS: Urine Blood NEGATIVE (NEG); Urine Glucose NEGATIVE (NEG); Urine Protein NEGATIVE (NEG); Urine Specific Gravity >1.030 (1.005-1.030); Urine pH 5.5 (5.0-7.0)
--- NOTE | 2020-12-28 16:29 | ER ---
Nurse's Notes [facility] Name: Mana Garces Age: 30 yrs Sex: Male : 1990 Arrival Date: 12/28/2020 Time: 12:48 Bed 23 Private MD: Diagnosis: Chest pain, unspecified;Other stimulant abuse Presentation: 12/28 12:55 Chief complaint: EMS states: patient picked up from snf. patient reported diffuse zb chest pain secondary to meth intake. patient took more meth than usual. Heart rated ranging from 70-140's. Coronavirus screen: At this time, the client does not indicate any symptoms associated with coronavirus-19. Ebola Screen: No symptoms or risks identified at this time. Initial Sepsis Screen: Does the patient meet any 2 criteria? No. Patient's initial sepsis screen is negative. Does the patient have a suspected source of infection? No. Patient's initial sepsis screen is negative. Risk Assessment: Do you want to hurt yourself or someone else? Patient reports no desire to harm self or others. Onset of symptoms was December 28, 2020. Care prior to arrival: None. 12:55 Acuity: WILD 3 zb 12:55 Method Of Arrival: EMS: [facility] zb Historical: - Allergies: 13:39 Ceclor; ca1 - Home Meds: 13:39 None [Active]; ca1 - PMHx: 13:39 Anxiety; Depression; PTSD; ca1 - PSHx: 13:39 Tonsillectomy; ca1 - Immunization history:: Flu vaccine is not up to date. - Social history:: Smoking status: Patient reports the use of cigarette tobacco products, smokes one pack cigarettes per day. Patient uses street drugs, Methamphetamine (Meth). Screenin:50 Abuse screen: Denies threats or abuse. Nutritional screening: No deficits noted. tw2 Tuberculosis screening: No symptoms or risk factors identified. Fall Risk None identified. Assessment: 13:00 General: Appears in no apparent distress. comfortable, Behavior is calm, cooperative, ca1 appropriate for age. Pain: Complains of pain in anterior aspect of left upper chest Pain does not radiate. Pain currently is 5 out of 10 on a pain scale. Pain began 2 hours ago. Is continuous. Neuro: Level of Consciousness is awake, alert, obeys commands, Oriented to person, place, time, situation. Cardiovascular: Heart tones S1 S2 present Capillary refill < 3 seconds Patient's skin is warm and dry. Rhythm is sinus rhythm. Respiratory: Airway is patent Respiratory effort is even, unlabored, Respiratory pattern is regular, symmetrical, Breath sounds are clear bilaterally. GI: Abdomen is flat, non-distended, Bowel sounds present X 4 quads. Abd is soft and non tender X 4 quads. : No signs and/or symptoms were reported regarding the genitourinary system. EENT: No signs and/or symptoms were reported regarding the EENT system. Derm: Skin is intact, is healthy with good turgor, Skin is pink, warm \T\ dry. Musculoskeletal: Circulation, motion, and sensation intact. Capillary refill < 3 seconds. 14:00 Reassessment: Patient appears in no apparent distress at this time. Patient and/or ca1 family updated on plan of care and expected duration. Pain level reassessed. Patient is alert, oriented x 3, equal unlabored respirations, skin warm/dry/pink. 15:00 Reassessment: Patient appears in no apparent distress at this time. Patient and/or ca1 family updated on plan of care and expected duration. Pain level reassessed. Patient is alert, oriented x 3, equal unlabored respirations, skin warm/dry/pink. 16:00 Reassessment: Patient appears in no apparent distress at this time. Patient and/or ca1 family updated on plan of care and expected duration. Pain level reassessed. Patient is alert, oriented x 3, equal unlabored respirations, skin warm/dry/pink. 16:37 Reassessment: Patient appears in no apparent distress at this time. Patient is alert, ca1 oriented x 3, equal unlabored respirations, skin warm/dry/pink. Vital Signs: 13:00 BP 146 / 98; Pulse 92; Resp 20; Temp 98.0; Pulse Ox 100% ; Weight 77.11 kg; Height 5 dh4 ft. 9 in. (175.26 cm); 14:00 BP 138 / 91; Pulse 95; Resp 16; Pulse Ox 99% on R/A; ca1 15:00 BP 116 / 88; Pulse 92; Resp 18 S; Pulse Ox 99% on R/A; ca1 16:00 BP 122 / 78; Pulse 93; Resp 16 S; Pulse Ox 100% on R/A; ca1 13:00 Body Mass Index 25.10 (77.11 kg, 175.26 cm) [facility] ED Course: 12:48 Patient arrived in ED. am2 12:54 Radha Bacon, RN is Primary Nurse. ca1 12:58 Triage completed. zb 13:00 Patient has correct armband on for positive identification. Bed in low position. Call ca1 light in reach. Side rails up X 1. Archivist Military History at bedside. radiologic technologist chief on. Pulse ox on. NIBP on. Warm blanket given. 13:00 Arm band placed on. ca1 13:07 Baldev Brown PA is PHCP. jenni 13:07 Tello Mack MD is Attending Physician. m 13:36 Initial lab(s) drawn, by me, sent to lab. Inserted saline lock: 20 gauge in right ca1 antecubital area, using aseptic technique. Blood collected. Patient maintains SpO2 saturation greater than 95% on room air. 13:44 XRAY Chest (1 view) In Process Unspecified. EDMS 16:32 No provider procedures requiring assistance completed. IV discontinued, intact, ca1 bleeding controlled, No redness/swelling at site. Pressure dressing applied. Administered Medications: 13:37 Drug: NS 0.9% 1000 ml Route: IV; Rate: 1 bolus; Site: right antecubital; ca1 14:30 Follow up: Response: No adverse reaction; IV Status: Completed infusion; IV Intake: ca1 1000ml Outcome: 16:28 Discharge ordered by . [facility] 16:37 Discharged to [employer] [facility] 16:37 Condition: stable 16:37 Discharge instructions given to patient, Instructed on discharge instructions, follow up and referral plans. Demonstrated understanding of instructions, follow-up care. 16:37 Patient left the ED. ca1 Signatures: Dispatcher [employer] EDMS Baldev Brown PA PA jmm Wise, Tara, RN RN 2 Ros Luis am2 Radha Bacon RN RN [facility] Kristian [place]ves [facility] Itzel Bangura RN RN zb Corrections: (The following items were deleted from the chart) 13:40 13:39 Patient has correct armband on for positive identification. Bed in low position. ca1 Call light in reach. Side rails up X 1. Archivist Military History at bedside [facility] 13:40 13:39 radiologic technologist chief on. Pulse ox on. NIBP on. ca1 ca1 13:40 13:39 Warm blanket given. ca1 ca1
--- NOTE | 2020-12-28 16:29 | EDPHYS ---
Physician Documentation [facility] Name: Mana Garces Age: 30 yrs Sex: Male : 1990 Arrival Date: 12/28/2020 Time: 12:48 Bed 23 Private MD: ED Physician Tello Mack HPI: 12/28 13:34 This 30 yrs old Male presents to ER via EMS with complaints of Chest Pain. [facility] 13:34 The patient or guardian reports chest pain that is located primarily in the substernal [facility] area. The pain does not radiate. Associated signs and symptoms: Pertinent positives: palpitations. The chest pain is described as dull. Duration: The patient or guardian reports a single episode, that is still ongoing, but improving. Modifying factors: The symptoms are alleviated by nothing. the symptoms are aggravated by nothing. Patient admits to taking meth prior to developing chest pain. Historical: - Allergies: 13:39 Ceclor; ca1 - Home Meds: 13:39 None [Active]; ca1 - PMHx: 13:39 Anxiety; Depression; PTSD; ca1 - PSHx: 13:39 Tonsillectomy; ca1 - Immunization history:: Flu vaccine is not up to date. - Social history:: Smoking status: Patient reports the use of cigarette tobacco products, smokes one pack cigarettes per day. Patient uses street drugs, Methamphetamine (Meth). ROS: 13:34 Constitutional: Negative for fever, chills, and weight loss. jmm 13:34 Respiratory: Negative for shortness of breath, cough, wheezing, and pleuritic chest pain. 13:34 Cardiovascular: Positive for chest pain, palpitations. 13:34 All other systems are negative. Exam: 13:34 Constitutional: This is a well developed, well nourished patient who is awake, alert, jmm and in no acute distress. Head/Face: atraumatic. Eyes: EOMI, no conjunctival erythema appreciated ENT: Moist Mucus Membranes Neck: Trachea midline, Supple Chest/axilla: Normal chest wall appearance and motion. Cardiovascular: Regular rate and rhythm. No edema appreciated Respiratory: Normal respirations, no respiratory distress appreciated Abdomen/GI: Non distended, soft Back: Normal ROM Skin: General appearance color normal MS/ Extremity: Moves all extremities, no obvious deformities appreciated, no edema noted to the lower extremities Neuro: Awake and alert, normal gait Psych: Behavior is normal, Mood is normal, Patient is cooperative and pleasant Vital Signs: 13:00 BP 146 / 98; Pulse 92; Resp 20; Temp 98.0; Pulse Ox 100% ; Weight 77.11 kg; Height 5 4 ft. 9 in. (175.26 cm); 14:00 BP 138 / 91; Pulse 95; Resp 16; Pulse Ox 99% on R/A; ca1 15:00 BP 116 / 88; Pulse 92; Resp 18 S; Pulse Ox 99% on R/A; ca1 16:00 BP 122 / 78; Pulse 93; Resp 16 S; Pulse Ox 100% on R/A; ca1 13:00 Body Mass Index 25.10 (77.11 kg, 175.26 cm) 4 MDM: 13:10 Patient medically screened. [facility] 16:27 Data reviewed: vital signs, nurses notes, lab test result(s), EKG, radiologic studies, [facility] plain films. ED course: Patient is alert and non toxic in appearance in the ED. No signs of resp distress. Normal VS on discharge. Patient advised to follow up with pcp and otherwise given strict return precautions. patient understood and agrees with the plan of care. . 12/28 13:11 Order name: Basic Metabolic Panel; Complete Time: 14:41 [facility] 12/28 13:11 Order name: CBC with Diff; Complete Time: 14:00 [facility] 12/28 13:11 Order name: LFT's; Complete Time: 14:41 [facility] 12/28 13:11 Order name: Magnesium; Complete Time: 14:41 [facility] 12/28 13:11 Order name: NT PRO-BNP; Complete Time: 14:41 [facility] 12/28 13:11 Order name: PT-INR; Complete Time: 14:00 [facility] 12/28 13:11 Order name: Troponin (emerg Dept Use Only); Complete Time: 14:41 [facility] 12/28 13:11 Order name: Acetaminophen; Complete Time: 14:41 [facility] 12/28 13:11 Order name: ETOH Level; Complete Time: 14:00 [facility] 12/28 13:11 Order name: Ptt, Activated; Complete Time: 14:00 [facility] 12/28 13:11 Order name: Salicylate; Complete Time: 14:30 [facility] 12/28 13:11 Order name: Urine Drug Screen; Complete Time: 16:23 [facility] 12/28 15:53 Order name: Urine Dipstick--Ancillary (enter results) em1 12/28 15:53 Order name: Urine Dipstick-Ancillary; Complete Time: 16:23 [facility] 12/28 13:11 Order name: XRAY Chest (1 view); Complete Time: 14:00 [facility] 12/28 13:11 Order name: EKG; Complete Time: 13:13 [facility] 12/28 13:11 Order name: Cardiac monitoring; Complete Time: 13:26 [facility] 12/28 13:11 Order name: EKG - Nurse/Tech; Complete Time: 13:25 [facility] 12/28 13:11 Order name: IV Saline Lock; Complete Time: 13:36 [facility] 12/28 13:11 Order name: Labs collected and sent; Complete Time: 13:36 [facility] 12/28 13:11 Order name: O2 Per Protocol; Complete Time: 13:36 [facility] 12/28 13:11 Order name: O2 Sat Monitoring; Complete Time: 13:36 [facility] 12/28 13:11 Order name: Urine Dipstick-Ancillary (obtain specimen); Complete Time: 15:47 jmm Administered Medications: 13:37 Drug: NS 0.9% 1000 ml Route: IV; Rate: 1 bolus; Site: right antecubital; ca1 14:30 Follow up: Response: No adverse reaction; IV Status: Completed infusion; IV Intake: ca1 1000ml Disposition: 12/28/20 16:28 Discharged to Home. Impression: Chest pain, unspecified, Other stimulant abuse. - Condition is Stable. - Discharge Instructions: Nonspecific Chest Pain, Stimulant Use Disorder-Methamphetamines. - Medication Reconciliation Form, Thank You Letter, Antibiotic Education, Prescription Opioid Use form. - Follow up: Private Physician; When: 2 - 3 days; Reason: Recheck today's complaints, Continuance of care, Re-evaluation by your physician. Addendum: 01/01/2021 05:52 Co-signature as Attending Physician, Tello Mack MD I agree with the assessment and k dr plan of care. Signatures: Dispatcher [employer] [facility] Tello Mack MD MD kdr Mickail, Joel, PA PA [facility] Acob, Radha, RN RN ca1 Corrections: (The following items were deleted from the chart) 12/28 16:29 16:28 12/28/2020 16:28 Discharged to Home. Impression: Chest pain, unspecified. [facility] Condition is Stable. Forms are Medication Reconciliation Form, Thank You Letter, Antibiotic Education, Prescription Opioid Use. Follow up: Private Physician; When: 2 - 3 days; Reason: Recheck today's complaints, Continuance of care, Re-evaluation by your physician. [facility] 16:37 16:29 12/28/2020 16:28 Discharged to Home. Impression: Chest pain, unspecified; Other ca1 stimulant abuse. Condition is Stable. Discharge Instructions: Nonspecific Chest Pain. Forms are Medication Reconciliation Form, Thank You Letter, Antibiotic Education, Prescription Opioid Use. Follow up: Private Physician; When: 2 - 3 days; Reason: Recheck today's complaints, Continuance of care, Re-evaluation by your physician. jenni
[2020-12-28 17:31] VITALS: TEMP 98
[2020-12-28 17:35] VITALS: BP 122/78; O2SAT 100
--- NOTE | 2020-12-29 14:12 | EKG ---
Test Date: 2020-12-28 Test Time: 12:53:34 Child Abuse Worker: AVRIL MEASUREMENT RESULTS: Intervals: Rate: 96 IA: 150 QRSD: 96 QT: 366 QTc: 462 [place]: P: 75 IA: 150 QRS: -41 T: 72 INTERPRETIVE STATEMENTS: Normal sinus rhythm Left axis deviation Abnormal ECG Compared to ECG 05/21/2019 01:35:59 Left-axis deviation now present Sinus tachycardia no longer present Incomplete right bundle-branch block no longer present Electronically Signed On 12-29-20 14:09:15 BOOKKEEPING CLERK by Wilton Eason
== END 2020-12-28 16:37 | disposition home or self-care (01) ==
LOC: ER 12:47
DX: F15.10 Other stimulant abuse, uncomplicated (principal); F17.210 Nicotine dependence, cigarettes, uncomplicated; Z88.1 Allergy status to other antibiotic agents
CPT/HCPCS: 36415; 71045; 80048; 80076; 80307; 80320; 80329; 81003; 83735; 83880; 84484; 85025; 85610; 85730; 93005; 96360; 99285; J7030

== ENCOUNTER 2021-10-12 08:28 | Emergency (ER) | payer SELFPAY ==
--- OUTSIDE RECORDS SUMMARY | 2021-10-12 08:31 | XMS REPORT | Continuity of Care Document ---
:1990 Author Organization [facility] t Address [address] [place] [address] Dr. Wilkins [address] [place] [id number] Care Team Providers Name Role Phone Unavailable Unavailable Unavailable Problems This patient has no known problems. Allergies, Adverse Reactions, Alerts This patient has no known allergies or adverse reactions. Medications This patient has no known medications. Procedures This patient has no known procedures. Results This patient has no known results.
[2021-10-12 09:07] LABS: Absolute Lymphocytes (CBC) 1.7 K/uL (0.7-4.9); Basophils % 0.4 % (0-1.3); Hematocrit 38.9 % (39.6-49.0); Lymphocytes % 17.2 % (15.3-44.8); MPV 7.6 fL (7.6-11.3); RBC Red Blood Cell Count 4.59 M/uL (4.33-5.43)
[2021-10-12 09:09] LABS: Protime INR 1.11
[2021-10-12 09:44] LABS: ALT/SGPT 27 U/L (12-78); AST/SGOT 14 U/L (15-37); Albumin 3.8 g/dL (3.4-5.0); Alkaline Phosphatase 51 U/L (45-117); BUN Blood Urea Nitrogen 17 mg/dL (7-18); Bicarbonate 25 mmol/L (21-32); Bilirubin Direct 0.2 mg/dL (0-0.2); Bilirubin Total 0.6 mg/dL (0.2-1.0); Glucose Level 186 mg/dL (74-106); Protein, Total 6.9 g/dL (6.4-8.2); Sodium Level 141 mmol/L (136-145)
[2021-10-12] MEDS ORDERED: ONDANSETRON 4 MG/2 ML VIAL ONE (09:50)
--- NOTE | 2021-10-12 12:26 | EDPHYS ---
Physician Documentation [facility] Name: Mana Garces Age: 31 yrs Sex: Male : 1990 Arrival Date: 10/12/2021 Time: 08:29 Bed 4 Private MD: ED Physician Tello Mack HPI: 10/12 09:37 This 31 yrs old Male presents to ER via EMS with complaints of Possible Overdose, Drug kdr Abuse. 09:37 The patient presents to the emergency department with a possible overdose, Patient kdr admits to heroin abuse. Context: Patient was found unresponsive in the bathroom of a [id number]. He admits to injecting heroin in his neck. He denies any trauma.. Associated signs and symptoms: Pertinent positives: decreased level of consciousness. Severity of symptoms: At their worst the symptoms were incapacitating in the emergency department the symptoms have improved markedly. The patient has experienced similar episodes in the past, multiple times, The patient states that he has not used heroin in about a year. He states that he is homeless and that he thought the heroin would make him feel better. The patient has not recently seen a physician. Patient was given Narcan by EMS and was awake and alert on arrival in the ED. Historical: - Allergies: 08:31 Ceclor; bp - PMHx: 08:31 Anxiety; Depression; PTSD; bp - Immunization history:: Adult Immunizations unknown. - Social history:: Smoking status: Patient reports the use of cigarette tobacco products, unknown amount Patient uses street drugs, heroin. ROS: 09:37 Constitutional: Negative for fever, chills, and weight loss, Eyes: Negative for injury, kdr pain, redness, and discharge, ENT: Negative for injury, pain, and discharge, Neck: Negative for injury, pain, and swelling, Cardiovascular: Negative for chest pain, palpitations, and edema, Respiratory: Negative for shortness of breath, cough, wheezing, and pleuritic chest pain, Abdomen/GI: Negative for abdominal pain, nausea, vomiting, diarrhea, and constipation, Back: Negative for injury and pain, : Negative for injury, bleeding, discharge, and swelling, MS/Extremity: Negative for injury and deformity, Skin: Negative for injury, rash, and discoloration, Psych: Negative for depression, anxiety, suicide ideation, homicidal ideation, and hallucinations, Allergy/Immunology: Negative for hives, rash, and allergies, Endocrine: Negative for neck swelling, polydipsia, polyuria, polyphagia, and marked weight changes, Hematologic/Lymphatic: Negative for swollen nodes, abnormal bleeding, and unusual bruising. 09:37 Neuro: Positive for altered mental status, loss of consciousness, The patient's initial presentation to EMS was being in an unresponsive state. That was resolved with the use of Narcan. Exam: 09:37 Constitutional: This is a well developed, well nourished patient who is awake, alert, kdr and in no acute distress. He has no focal complaint however he is very disheveled and dirty. Head/Face: Normocephalic, atraumatic. Eyes: Pupils equal round and reactive to light, extra-ocular motions intact. Lids and lashes normal. Conjunctiva and sclera are non-icteric and not injected. Cornea within normal limits. Periorbital areas with no swelling, redness, or edema. Neck: Trachea midline, no thyromegaly or masses palpated, and no cervical lymphadenopathy. Supple, full range of motion without nuchal rigidity, or vertebral point tenderness. No Meningismus. There appears to be an injection site on the left lateral aspect of his neck Chest/axilla: Normal chest wall appearance and motion. Nontender with no deformity. No lesions are appreciated. Cardiovascular: Regular rate and rhythm with a normal S1 and S2. No gallops, murmurs, or rubs. Normal PMI, no JVD. No pulse deficits. Respiratory: Lungs have equal breath sounds bilaterally, clear to auscultation and percussion. No rales, rhonchi or wheezes noted. No increased work of breathing, no retractions or nasal flaring. Abdomen/GI: Soft, non-tender, with normal bowel sounds. No distension or tympany. No guarding or rebound. No evidence of tenderness throughout. Back: No spinal tenderness. No costovertebral tenderness. Full range of motion. Skin: Warm, dry with normal turgor. Normal color with no rashes, no lesions, and no evidence of cellulitis. MS/ Extremity: Pulses equal, no cyanosis. Neurovascular intact. Full, normal range of motion. Neuro: Awake and alert, GCS 15, oriented to person, place, time, and situation. Cranial nerves II-XII grossly intact. Motor strength 5/5 in all extremities. Sensory grossly intact. Cerebellar exam normal. Normal gait. Psych: Awake, alert, with orientation to person, place and time. Behavior, mood, and affect are within normal limits. 09:42 ECG was reviewed by the Attending Physician. kdr Vital Signs: 08:29 BP 130 / 81; Pulse 106; Resp 16; Temp 98; Pulse Ox 98% ; bp 09:00 BP 130 / 85; Pulse 100; Resp 17; Pulse Ox 100% ; bp 10:00 BP 113 / 86; Pulse 88; Resp 17; Pulse Ox 100% ; bp 11:00 BP 122 / 84; Pulse 87; Resp 15; Pulse Ox 100% ; bp 12:00 BP 120 / 86; Pulse 78; Resp 15; Pulse Ox 99% ; bp MDM: 12:25 Patient medically screened. kdr 15:44 Data reviewed: vital signs, nurses notes, lab test result(s), radiologic studies. kdr Counseling: I had a detailed discussion with the patient and/or guardian regarding: the historical points, exam findings, and any diagnostic results supporting the discharge/admit diagnosis, lab results, radiology results, the need for outpatient follow up. 10/12 08:31 Order name: Acetaminophen; Complete Time: 09:48 kdr 10/12 08:31 Order name: Basic Metabolic Panel; Complete Time: 09:48 kdr 10/12 08:31 Order name: CBC with Diff; Complete Time: 09:37 kdr 10/12 08:31 Order name: ETOH Level; Complete Time: 09:37 kdr 10/12 08:31 Order name: Hepatic Function; Complete Time: 09:48 kdr 10/12 08:31 Order name: PT-INR; Complete Time: 09:37 kdr 10/12 08:31 Order name: Ptt, Activated; Complete Time: 09:37 kdr 10/12 08:31 Order name: Salicylate; Complete Time: 09:48 kdr 10/12 08:31 Order name: EKG; Complete Time: 08:32 kdr 10/12 08:31 Order name: EKG - Nurse/Tech; Complete Time: 08:38 kdr 10/12 08:31 Order name: IV Saline Lock; Complete Time: 08:38 kdr 10/12 08:31 Order name: Labs collected and sent; Complete Time: 09:49 kdr 10/12 08:31 Order name: Suicide Screening (Kiran); Complete Time: 08:38 kdr EC:42 Rate is 94 beats/min. Rhythm is regular, Sinus Rhythm with No ectopy, Right bundle kdr branch block. QRS [place] is Normal. [place] interval is normal. QRS interval is normal. QT interval is normal. Clinical impression: NSR w/ Non-specific ST/T Changes. Administered Medications: 08:39 Drug: NS 0.9% 1000 ml Route: IV; Rate: 1 bolus; Site: right antecubital; bp 09:53 Follow up: Response: No adverse reaction; IV Status: Completed infusion; IV Intake: ll1 1000ml 09:53 Drug: Zofran (Ondansetron) 4 mg Route: IVP; Site: right antecubital; ll1 12:08 Follow up: Response: Nausea is decreased bp Disposition Summary: 10/12/21 12:25 Discharge Ordered Location: Home kdr Problem: new kdr Symptoms: have improved kdr Condition: Stable kdr Diagnosis - Altered mental status, unspecified kdr - Abuse of other non-psychoactive substances kdr - Poisoning by heroin, accidental (unintentional), sequela kdr Followup: kdr - With: Private Physician - When: 2 - 3 days - Reason: If symptoms return, Further diagnostic work-up, Recheck today's complaints, Continuance of care, Re-evaluation by your physician Discharge Instructions: - Discharge Summary Sheet kdr - Finding Treatment for Addiction kdr - Accidental Drug Poisoning, Adult kdr - Substance Use Disorder kdr Forms: - Medication Reconciliation Form kdr - Thank You Letter kdr Signatures: Dispatcher [employer] Tello Adame MD MD kdr Cresencio Sesay RN RN Yosef Archuleta RN RN ll1
--- NOTE | 2021-10-12 12:26 | ER ---
Nurse's Notes [facility] Name: Mana Garces Age: 31 yrs Sex: Male : 1990 Arrival Date: 10/12/2021 Time: 08:29 Bed 4 Private MD: Diagnosis: Altered mental status, unspecified;Abuse of other non-psychoactive substances;Poisoning by heroin, accidental (unintentional), sequela Presentation: 10/12 08:29 Chief complaint: EMS states: FOUND UNRESPONSIVE AT [place] IN THE BOX RESTROOM WITH DRUG bp PARAPHENALIA, AFFIRMS HEROIN USE. Coronavirus screen: At this time, the client does not indicate any symptoms associated with coronavirus-19. Ebola Screen: No symptoms or risks identified at this time. Initial Sepsis Screen: Does the patient meet any 2 criteria? HR > 90 bpm. No. Patient's initial sepsis screen is negative. Does the patient have a suspected source of infection? No. Patient's initial sepsis screen is negative. Risk Assessment: Do you want to hurt yourself or someone else? Patient reports no desire to harm self or others. 08:29 Method Of Arrival: EMS: [facility] bp 08:29 Acuity: WILD 3 bp 08:34 Care prior to arrival: Glucose check: 221. bp Triage Assessment: 08:31 General: Appears in no apparent distress. comfortable, unkempt, Behavior is bp cooperative, appropriate for age, drowsy. Pain: Denies pain. EENT: No deficits noted. Neuro: Level of Consciousness is awake, obeys commands, lethargic, Oriented to Appropriate for age. Cardiovascular: Rhythm is sinus tachycardia. Respiratory: No deficits noted. GI: No signs and/or symptoms were reported involving the gastrointestinal system. : No signs and/or symptoms were reported regarding the genitourinary system. Derm: No deficits noted. Musculoskeletal: No deficits noted. Historical: - Allergies: 08:31 Ceclor; bp - PMHx: 08:31 Anxiety; Depression; PTSD; bp - Immunization history:: Adult Immunizations unknown. - Social history:: Smoking status: Patient reports the use of cigarette tobacco products, unknown amount Patient uses street drugs, heroin. Screenin:36 Abuse screen: Denies threats or abuse. Denies injuries from another. Nutritional bp screening: No deficits noted. Tuberculosis screening: No symptoms or risk factors identified. Fall Risk None identified. Assessment: 08:36 General: SEE TRIAGE NOTE. bp 10:00 Reassessment: No changes from previously documented assessment. Patient and/or family bp updated on plan of care and expected duration. Pain level reassessed. 12:00 Reassessment: No changes from previously documented assessment. Patient and/or family bp updated on plan of care and expected duration. Pain level reassessed. UOP PENDING. Vital Signs: 08:29 BP 130 / 81; Pulse 106; Resp 16; Temp 98; Pulse Ox 98% ; bp 09:00 BP 130 / 85; Pulse 100; Resp 17; Pulse Ox 100% ; bp 10:00 BP 113 / 86; Pulse 88; Resp 17; Pulse Ox 100% ; bp 11:00 BP 122 / 84; Pulse 87; Resp 15; Pulse Ox 100% ; bp 12:00 BP 120 / 86; Pulse 78; Resp 15; Pulse Ox 99% ; bp ED Course: 08:29 Patient arrived in ED. kdr 08:29 Cresencio Sesay, RN is Primary Nurse. bp 08:31 Tello Mack MD is Attending Physician. kdr 08:31 Triage completed. bp 08:34 Arm band placed on. bp 08:36 Patient has correct armband on for positive identification. Bed in low position. Call bp light in reach. Side rails up X2. 08:37 Maintain EMS IV. Dressing intact. Good blood return noted. Site clean \T\ dry. Gauge \T\ bp site: 18 G R AC. Administered Medications: 08:39 Drug: NS 0.9% 1000 ml Route: IV; Rate: 1 bolus; Site: right antecubital; bp 09:53 Follow up: Response: No adverse reaction; IV Status: Completed infusion; IV Intake: ll1 1000ml 09:53 Drug: Zofran (Ondansetron) 4 mg Route: IVP; Site: right antecubital; ll1 12:08 Follow up: Response: Nausea is decreased bp Intake: 09:53 IV: 1000ml; Total: 1000ml. ll1 Outcome: 12:25 Discharge ordered by . kdr 12:57 Patient left the ED. Signatures: Tello Mack MD MD kdr Smirch, Shelby, RN RN Shama, Cresencio, RN RN bp Morales, Lynsay, RN RN ll1
[2021-10-12 13:05] VITALS: TEMP 98
[2021-10-12 13:12] VITALS: BP 120/86; O2SAT 99
== END 2021-10-12 12:57 | disposition home or self-care (01) ==
LOC: ER 08:28
DX: F55.8 Abuse of other non-psychoactive substances (principal); T40.1X1A Poisoning by heroin, accidental (unintentional), initial encounter; Z88.1 Allergy status to other antibiotic agents
CPT/HCPCS: 36415; 80048; 80076; 80320; 80329; 85025; 85610; 85730; 93005; 96361; 96374; 99284; J2405

== ENCOUNTER 2021-10-20 04:38 | Emergency (ER) | payer SELFPAY ==
--- OUTSIDE RECORDS SUMMARY | 2021-10-20 04:40 | XMS REPORT | Continuity of Care Document ---
:1990 Author Organization [facility] t Address [address] Wilkins [address] [place] [id number] Care Team Providers Name Role Phone Unavailable Unavailable Unavailable Problems This patient has no known problems. Allergies, Adverse Reactions, Alerts This patient has no known allergies or adverse reactions. Medications This patient has no known medications. Procedures This patient has no known procedures. Results This patient has no known results.
[2021-10-20] MEDS ORDERED: NA CHLORIDE 0.9% 1,000 ML ONE (05:44)
[2021-10-20] MEDS ORDERED: NALOXONE 0.4 MG/ML VIAL ONE (05:45)
[2021-10-20 05:50] LABS: Absolute Lymphocytes (CBC) 1.7 K/uL (0.7-4.9); Basophils % 0.5 % (0-1.3); Hematocrit 38.2 % (39.6-49.0); Lymphocytes % 14.9 % (15.3-44.8); MPV 7.3 fL (7.6-11.3)
[2021-10-20 05:54] LABS: Protime INR 1.03
[2021-10-20 06:15] LABS: ALT/SGPT 27 U/L (12-78); AST/SGOT 12 U/L (15-37); Alkaline Phosphatase 55 U/L (45-117); BUN Blood Urea Nitrogen 13 mg/dL (7-18); Bicarbonate 32 mmol/L (21-32); Bilirubin Direct 0.1 mg/dL (0-0.2); Bilirubin Total 0.3 mg/dL (0.2-1.0); Glucose Level 133 mg/dL (74-106); Potassium 3.8 mmol/L (3.5-5.1); Protein, Total 7.1 g/dL (6.4-8.2); Sodium Level 139 mmol/L (136-145)
--- NOTE | 2021-10-20 08:57 | EDPHYS ---
Physician Documentation [facility] Name: Mana Garces Age: 31 yrs Sex: Male : 1990 Arrival Date: 10/20/2021 Time: 04:46 Bed 4 Private MD: ED Physician Mitchel White HPI: 10/20 05:14 This 31 yrs old Male presents to ER via EMS with complaints of Overdose. mh7 05:14 The patient presents to the emergency department after a known overdose, a result of mh7 recreational substance abuse. Context: Method: it is confirmed or suspected that the patient injected a substance, amphetamines, heroin, Time: today, Extent: it is unknown what amount the patient injected, the OD/poisoning occurred at at a store, and was witnessed no one, Psychiatric history: none, Previous OD/poisoning history: yes, ---- week(s) ago 1 week(s) ago. Associated signs and symptoms: Pertinent positives: decreased level of consciousness, Pertinent negatives: anxiety, burning of skin, depression, diaphoresis, diarrhea, dizziness, incontinence, nausea, palpitations, shortness of breath, tearfulness, visual hallucinations, vomiting. Severity of symptoms: At their worst the symptoms were moderate today, in the emergency department the symptoms have improved moderately. Patient found at a gas station with decreased responsiveness after overdose on heroin and methamphetamine. Patient admits to drug use. He denies any suicidal or homicidal ideation. Denies any auditory or visual hallucinations. He denies any complaints.. Historical: - Allergies: 05:10 Ceclor; bb - PMHx: 05:10 Anxiety; Depression; PTSD; bb - Immunization history:: Adult Immunizations up to date, Client reports receiving the 1st dose of the Covid vaccine. - Social history:: Smoking status: Patient reports the use of cigarette tobacco products, smokes one-half pack cigarettes per day, Patient uses street drugs, heroin, Methamphetamine (Meth). ROS: 05:14 Constitutional: Negative for fever, chills, and weight loss, Eyes: Negative for injury, mh7 pain, redness, and discharge, ENT: Negative for injury, pain, and discharge, Neck: Negative for injury, pain, and swelling, Cardiovascular: Negative for chest pain, palpitations, and edema, Respiratory: Negative for shortness of breath, cough, wheezing, and pleuritic chest pain, Abdomen/GI: Negative for abdominal pain, nausea, vomiting, diarrhea, and constipation, Back: Negative for injury and pain, : Negative for injury, bleeding, discharge, and swelling, MS/Extremity: Negative for injury and deformity, Skin: Negative for injury, rash, and discoloration, Neuro: Negative for headache, weakness, numbness, tingling, and seizure, Psych: Negative for depression, anxiety, suicide ideation, homicidal ideation, and hallucinations, Allergy/Immunology: Negative for hives, rash, and allergies, Endocrine: Negative for neck swelling, polydipsia, polyuria, polyphagia, and marked weight changes, Hematologic/Lymphatic: Negative for swollen nodes, abnormal bleeding, and unusual bruising. Exam: 05:14 Head/Face: Normocephalic, atraumatic. mh7 05:14 Neck: Trachea midline, no thyromegaly or masses palpated, and no cervical lymphadenopathy. Supple, full range of motion without nuchal rigidity, or vertebral point tenderness. No Meningismus. Chest/axilla: Normal chest wall appearance and motion. Nontender with no deformity. No lesions are appreciated. Cardiovascular: Regular rate and rhythm with a normal S1 and S2. No gallops, murmurs, or rubs. Normal PMI, no JVD. No pulse deficits. Respiratory: Lungs have equal breath sounds bilaterally, clear to auscultation and percussion. No rales, rhonchi or wheezes noted. No increased work of breathing, no retractions or nasal flaring. Abdomen/GI: Soft, non-tender, with normal bowel sounds. No distension or tympany. No guarding or rebound. No evidence of tenderness throughout. Back: No spinal tenderness. No costovertebral tenderness. Full range of motion. Skin: Warm, dry with normal turgor. Normal color with no rashes, no lesions, and no evidence of cellulitis. MS/ Extremity: Pulses equal, no cyanosis. Neurovascular intact. Full, normal range of motion. 05:14 Constitutional: The patient appears Sleeping, drowsy, but easily arousable, appears intoxicated 05:14 Eyes: Periorbital structures: appear normal, Pupils: pinpoint, bilaterally, Extraocular movements: intact throughout. 05:14 Neuro: Orientation: appropriate for stated age, Drowsy, but arousable , Mentation: sleepy, Memory: appropriate for stated age, Cranial nerves: is grossly normal based on the patient's age, Cerebellar function: unable to test, the patient is clinically intoxicated, Motor: moves all fours, Sensation: no obvious gross deficits, Gait: not tested. seizure activity, is not displayed by the patient, Abnormal movements: there are no abnormal movements. 05:14 Psych: Behavior/mood is cooperative, Drowsy, but arousable. Affect is flat, Patient has no thoughts/intents to harm self or others. Memory is normal. Delusions/hallucinations are not present. Vital Signs: 05:00 BP 129 / 82; Pulse 101; Resp 10 S; Temp 97.4(TE); Pulse Ox 95% on R/A; Weight 68.04 kg bb (R); Height 5 ft. 10 in. (177.80 cm) (R); Pain 0/10; 05:21 BP 139 / 91; Pulse 96; Resp 10; Pulse Ox 95% on 2 lpm NC; tw5 05:49 BP 149 / 95; Pulse 99; Resp 5; Pulse Ox 95% on 2 lpm NC; tw5 06:41 BP 129 / 98; Pulse 75; Resp 12; Pulse Ox 100% on R/A; tw5 05:00 Body Mass Index 21.52 (68.04 kg, 177.80 cm) bb MDM: 07:04 Patient medically screened. rn 07:06 ED course: Pt signed out to me by Dr. Harper, plan to to observe [facility] while s/p rn heroin overdose. S/p narcan.. 08:55 Differential diagnosis: Ingestion/exposure to heroin. Data reviewed: vital signs, rn nurses notes, lab test result(s), EKG, and as a result, I will discharge patient. Counseling: I had a detailed discussion with the patient and/or guardian regarding: the historical points, exam findings, and any diagnostic results supporting the discharge/admit diagnosis, lab results, the need for outpatient follow up, to return to the emergency department if symptoms worsen or persist or if there are any questions or concerns that arise at home. Response to treatment: the patient's symptoms have markedly improved after treatment, and as a result, I will discharge patient. Special discussion: I discussed with the patient/guardian in detail that at this point there is no indication for admission to the hospital. It is understood, however, that if the symptoms persist or worsen the patient needs to return immediately for re-evaluation. ED course: Patient feels much better, alert and awake, sitting up on own power. Drinking orange juice and water. Respiratory rate normal now and speaking full sentences. No need for repeat Narcan. Has been observed now for at least 4 hours. Will DC home with instructions to stop using heroin.. 10/20 05:22 Order name: Acetaminophen; Complete Time: 06:54 10/20 05:22 Order name: Basic Metabolic Panel; Complete Time: 06:54 10/20 05:22 Order name: CBC with Diff; Complete Time: 06:54 10/20 05:22 Order name: ETOH Level; Complete Time: 06:54 10/20 05:22 Order name: Hepatic Function; Complete Time: 06:54 10/20 05:22 Order name: PT-INR; Complete Time: 06:54 10/20 05:22 Order name: Ptt, Activated; Complete Time: 06:54 10/20 05:22 Order name: Salicylate; Complete Time: 06:54 10/20 05:22 Order name: EKG; Complete Time: 05:23 10/20 05:22 Order name: EKG - Nurse/Tech; Complete Time: 05:39 10/20 07:35 Order name: Diet Regular; Complete Time: 07:36 10/20 05:22 Order name: IV Saline Lock; Complete Time: 05:39 10/20 05:22 Order name: Labs collected and sent; Complete Time: 05:39 10/20 05:22 Order name: Suicide Screening ([place]); Complete Time: 05:39 10/20 05:22 Order name: Urine Dipstick-Ancillary (obtain specimen); Complete Time: 05:39 10/20 08:12 Order name: PO challenge; Complete Time: 08:20 rn Administered Medications: 05:47 Drug: NARcan (naloxone) 0.4 mg Route: IVP; Site: right hand; tw5 05:47 Drug: NS 0.9% 1000 ml Route: IV; Rate: 1000 ml; Site: right hand; tw5 Disposition Summary: 10/20/21 08:56 Discharge Ordered Location: Home rn Problem: new rn Symptoms: have improved rn Condition: Stable rn Diagnosis - Poisoning by heroin, accidental (unintentional), initial encounter rn Followup: rn - With: Private Physician - When: As needed - Reason: Recheck today's complaints, Re-evaluation by your physician Discharge Instructions: - Discharge Summary Sheet rn - Opioid Overdose rn - Accidental Drug Poisoning, Adult rn Forms: - Medication Reconciliation Form rn - Thank You Letter rn - Antibiotic furniture detailer - Prescription Opioid Use rn Signatures: Dispatcher [employer] Kiera Canchola RN RN bb Nieto, Roman, MD MD rn Holmes, Maurice, MD MD [address]
--- NOTE | 2021-10-20 08:57 | ER ---
Nurse's Notes [facility] Name: Mana Garces Age: 31 yrs Sex: Male : 1990 Arrival Date: 10/20/2021 Time: 04:46 Bed 4 Private MD: Diagnosis: Poisoning by heroin, accidental (unintentional), initial encounter Presentation: 10/20 05:00 Chief complaint: EMS states: they were toned out for report of pt having OD on heroin bb at the [facility] on their arrival pt was ambulatory. Coronavirus screen: At this time, the client does not indicate any symptoms associated with coronavirus-19. Ebola Screen: No symptoms or risks identified at this time. Initial Sepsis Screen: Does the patient meet any 2 criteria? No. Patient's initial sepsis screen is negative. Does the patient have a suspected source of infection? No. Patient's initial sepsis screen is negative. Risk Assessment: Do you want to hurt yourself or someone else? Patient reports no desire to harm self or others. Onset of symptoms is unknown. 05:00 Method Of Arrival: EMS: [facility] bb 05:00 Acuity: WILD 2 bb Triage Assessment: 05:10 General: Appears pt is somnolent, appears unkempt, needs constant prompting to stay bb awake, respiratory effort is poor pt desats unless stimulated to wake up O2 applied via NC at 2 Lpm. Pain: Denies pain. Neuro: Level of Consciousness is lethargic, Oriented to person. Cardiovascular: Capillary refill < 3 seconds Patient's skin is warm and dry. Respiratory: Respiratory effort is shallow, weak. GI: Reports vomiting. Derm: Skin is pink, warm \\T\\ dry. Musculoskeletal: Circulation, motion, and sensation intact. Historical: - Allergies: 05:10 Ceclor; bb - PMHx: 05:10 Anxiety; Depression; PTSD; bb - Immunization history:: Adult Immunizations up to date, Client reports receiving the 1st dose of the Covid vaccine. - Social history:: Smoking status: Patient reports the use of cigarette tobacco products, smokes one-half pack cigarettes per day, Patient uses street drugs, heroin, Methamphetamine (Meth). Screenin:13 Abuse screen: Denies threats or abuse. Nutritional screening: No deficits noted. bb Tuberculosis screening: No symptoms or risk factors identified. Fall Risk Secondary diagnosis (15 points) impaired mobility, Gait- Impaired (20 pts.). Mental Status- Overestimates/Forgets Limitations (15 pts.). Total [place] Fall Scale indicates High Risk Score (45 or more points). Fall prevention measures have been instituted. Side Rails Up X 2. Assessment: 05:13 Reassessment: No changes from previously documented assessment. see triage assessment. bb 05:21 General: Reports " They said that I overdosed.". General: Behavior is drowsy. Neuro: tw5 Speech is slurred. Respiratory: Airway is patent Trachea midline Respiratory effort is shallow, Respiratory pattern is hypoventilation. 05:40 : Reports inability to void. tw5 05:48 Cardiovascular: Capillary refill Rhythm is regular. tw5 05:50 General: Patient promptly woke after Narcan was administered stating " I don't feel so tw5 good, why is this happening?". 06:41 Reassessment: Patient appears in no apparent distress at this time. No changes from tw5 previously documented assessment. Patient and/or family updated on plan of care and expected duration. Pain level reassessed. General: Behavior is. 07:00 Reassessment: Patient appears in no apparent distress at this time. Patient and/or jl7 family updated on plan of care and expected duration. Pain level reassessed. Patient is alert, oriented x 3, equal unlabored respirations, skin warm/dry/pink. Vital Signs: 05:00 BP 129 / 82; Pulse 101; Resp 10 S; Temp 97.4(TE); Pulse Ox 95% on R/A; Weight 68.04 kg bb (R); Height 5 ft. 10 in. (177.80 cm) (R); Pain 0/10; 05:21 BP 139 / 91; Pulse 96; Resp 10; Pulse Ox 95% on 2 lpm NC; tw5 05:49 BP 149 / 95; Pulse 99; Resp 5; Pulse Ox 95% on 2 lpm NC; tw5 06:41 BP 129 / 98; Pulse 75; Resp 12; Pulse Ox 100% on R/A; tw5 05:00 Body Mass Index 21.52 (68.04 kg, 177.80 cm) ED Course: 04:46 Patient arrived in ED. cs9 04:51 Carlo Harper MD is Attending Physician. mh7 04:59 Nafisa Shrestha is Primary Nurse. tw5 05:10 Triage completed. bb 05:10 Arm band placed on Patient placed in an exam room, on a stretcher, on oxygen, on pulse bb oximetry. 05:13 Patient has correct armband on for positive identification. Call light in reach. Side bb rails up X2. 05:21 No provider procedures requiring assistance completed. tw5 05:39 Acetaminophen Sent. tw5 05:39 Basic Metabolic Panel Sent. tw5 05:39 CBC with Diff Sent. tw5 05:39 ETOH Level Sent. tw5 05:39 Hepatic Function Sent. tw5 05:39 PT-INR Sent. tw5 05:39 Ptt, Activated Sent. tw5 05:40 project economist on. Pulse ox on. NIBP on. Noise minimized. Moved to private room. Warm tw5 blanket given. Verbal reassurance given. 05:40 Salicylate Sent. tw5 05:40 Initial lab(s) drawn, by mi, sent to lab. Inserted saline lock: 20 gauge in right hand, tw5 using aseptic technique. Blood collected. 05:40 Oxygen administration via nasal cannula \\T\\ 2L/min. tw5 05:48 Acetaminophen Sent. tw5 05:48 Basic Metabolic Panel Sent. tw5 05:48 CBC with Diff Sent. tw5 05:48 ETOH Level Sent. tw5 05:48 Hepatic Function Sent. tw5 05:48 PT-INR Sent. tw5 05:48 Ptt, Activated Sent. tw5 05:48 Salicylate Sent. tw5 06:41 Appears to be sleeping. tw5 07:04 Attending Physician role handed off by Carlo Harper MD rn 07:04 Mitchel White MD is Attending Physician. rn 09:08 IV discontinued, intact, bleeding controlled, No redness/swelling at site. Pressure jl7 dressing applied. Administered Medications: 05:47 Drug: NARcan (naloxone) 0.4 mg Route: IVP; Site: right hand; tw5 05:47 Drug: NS 0.9% 1000 ml Route: IV; Rate: 1000 ml; Site: right hand; tw5 Outcome: 08:56 Discharge ordered by . rn 09:08 Discharged to home ambulatory. jl7 09:08 Condition: stable 09:08 Discharge instructions given to patient, Instructed on discharge instructions, follow up and referral plans. Demonstrated understanding of instructions, follow-up care. 09:09 Patient left the ED. jl7 Signatures: Kiera Cano RN RN bb Nieto, Roman, MD MD rn Leal, Jahala, RN RN jl7 Carlo Harper MD MD 7 Nafisa Shrestha 5 Dominique Ramirez 9
[2021-10-20 09:17] VITALS: TEMP 97.4
[2021-10-20 09:22] VITALS: BP 129/98; O2SAT 100
--- NOTE | 2021-10-22 08:13 | EKG ---
Test Date: 2021-10-20 Test Time: 05:32:27 [employer]ch [employer]: AMANDA MEASUREMENT RESULTS: Intervals: Rate: 95 ID: [id number] QRSD: 108 QT: 374 QTc: 469 [place]: P: 47 ID: [id number] QRS: -27 T: 48 INTERPRETIVE STATEMENTS: Normal sinus rhythm Incomplete right bundle branch block Borderline ECG Compared to ECG 10/12/2021 08:48:45 No significant changes Electronically Signed On 10-22-21 08:11:30 CATHODIC PROTECTION TECHNICIAN by Wilton Eason
== END 2021-10-20 09:09 | disposition home or self-care (01) ==
LOC: ER 04:38
DX: T40.1X1A Poisoning by heroin, accidental (unintentional), initial encounter (principal); F17.210 Nicotine dependence, cigarettes, uncomplicated; Z88.8 Allergy status to other drugs, medicaments and biological substances
CPT/HCPCS: 36415; 80048; 80076; 80320; 80329; 85025; 85610; 85730; 93005; 96374; 99291; 99292; J2310; J7030